=== PATIENT | female | born 1990 | race Caucasian/White ===

== ENCOUNTER 2017-02-27 09:12 | Inpatient (IN) | payer MEDICAID ==
[~2017-02-27] VITALS: Ht 157.5 cm; Wt 84.5 kg
[~2017-02-27 09:12] MED LIST: MOTRIN 600600 MG/TAB PO; PERCOCET 325 MG1 TA2 PO; PRENTAL 1 PLUS1 TAB PO; SENOKOT S 50 MG1 TAB PO
[2017-04-05] VITALS (19 sets, daily range): BP systolic 94–118; BP diastolic 44–72; PULSE 61–94; TEMP 97.6–98.1
--- NOTE | 2017-04-05 05:28 | NUR ---
HERE FOR REPEEAT C/S- SHOWN TO ROOM 210 FOR PREOP. PLAN OF CARE REVIEWED, PERMITS OBTAINED
[2017-04-05 06:37] LABS: BASO % 0.1 % (0.0-2.0); EOS % 0.4 % (0-4.0); GRAN # 5.3 (1.4-6.5); GRAN % 67.2 % (42.2-75.2); HEMOGLOBIN 12.5 g/dl (12.5-16.0); LYMPH % 25.6 % (20.0-51.0); MEAN CELL VOLUME 90 fl (80.0-100.0); MEAN CORPUSCULAR HEMOGLOBIN 31 pg (27.0-31.0); MEAN CORPUSCULAR HGB CONC 35 g/dl (33.0-37.0); MONO # 0.5 (0.1-0.6); MONO % 6.2 % (1.7-9.3); PLATELET COUNT 172 K/mm3 (130-400); RED BLOOD COUNT 3.99 M/mm3 (4.10-5.30); REDCELL DISTRIBUTION WIDTH-CV 14.9 % (11.5-14.5)
[2017-04-05] MEDS ORDERED: FERRO-TIME325 MG PO (06:40)
[2017-04-05] MEDS ORDERED: PRENATAL1 TA7 PO (06:40)
--- NOTE | 2017-04-05 06:40 | NUR ---
0640- Nurse at patient bedside. Plan of care reviewed with patient and family. Alert and oriented x3. LR infusing without difficulty in right forearm. Patient denies leaking of fluids, vaginal bleeding, or contractions. Reports good movement. Vital signs obtained and within normal limits. Assessment completed.
[2017-04-05 06:49] LABS: HEMATOCRIT 35.7 % (37.0-47.0)
--- NOTE | 2017-04-05 07:10 | NUR ---
0710- Patient ambulatory to OR suite.
--- NOTE | 2017-04-05 08:15 | NUR ---
0815- Patient to PACU via bed. Alert and oriented x3. Monitors applied. Vitals signs obtained. Fundus firm, midline, and bleeding minimal. Assessment completed. IV infusing without difficulty. Catherter to DD. Plan of care reviewed with patient who verbalizes understanding.
--- NOTE | 2017-04-05 08:30 | NUR ---
0830- Fundus boggy; firm with massage. No free flow noted. 0845- Patient alert and oriented x3. Fundus firm, midline, and bleeding minimal. Vital signs stable. Urine output adequate. LR infusing without difficulty. Patient to room 210 via bed. Plan of care reviewed with patient and family who verbalize understanding. Patient resting comfortably with call light within reach.
--- NOTE | 2017-04-05 13:50 | NUR ---
1350- Fundus firm, midline, and bleeding minimal. Patient assisted to sit on edge of bed. Denies feelings of lightheadedness or dizziness. Ambulatory to bathroom. Reyes catheter discontinued. Leeanne care provided, pads changed, and clean gown on. Patient back to bed independently. Quiet time reviewed with patient and family. Patient denies further questions or needs. Call light within reach.
[2017-04-06 04:30] VITALS: BP 113/67; PULSE 80; TEMP 97.8
[2017-04-06] MEDS ORDERED: IBU800 M1 PO (07:31)
[2017-04-06] MEDS ORDERED: PERCOCET 325 MG1 TA2 PO (07:32)
[2017-04-06 08:30] VITALS: BP 112/74; PULSE 93; TEMP 98.3
--- NOTE | 2017-04-06 09:38 | NUR ---
Initial visit; Mom thanked [employer] Machine Set Up Operator for offering congratulations and God's blessings regarding the of her son. Center Machine Set Up Operator thanked patient for choosing [facility].
== END 2017-04-06 11:50 | disposition home or self-care (01) | DRG 765 ==
LOC: OB 04-05 05:19 → EDSTATUS 04-12 07:31 → LDRO 04-12 09:12
PROVIDERS: ADMIT Obstetrics & Gynecology
PROC: 10D00Z1 Extraction of Products of Conception, Low, Open Approach (ICD-10-PCS; principal; 2017-04-05)
DX: O34.211 Maternal care for low transverse scar from previous cesarean delivery (principal); O36.0130 Maternal care for anti-D [Rh] antibodies, third trimester, not applicable or unspecified; N85.8 Other specified noninflammatory disorders of uterus; Z3A.39 39 weeks gestation of pregnancy; Z37.0 Single live birth
CPT/HCPCS: J0690; J1885; J2270; J2370; J2405; J2590; J2791; J7120

== ENCOUNTER 2018-07-26 05:33 | Inpatient (IN) | payer MEDICAID ==
[~2018-07-26] VITALS: Ht 157.5 cm; Wt 81.4 kg
[2018-07-26] VITALS (19 sets, daily range): BP systolic 82–121; BP diastolic 41–76; PULSE 68–103; TEMP 97.8–98.2
[~2018-07-26 05:33] MED LIST changes: +FERRO-TIME325 MG PO; +IBU800 M1 PO; +PRENATAL1 TA7 PO
[2018-07-26 06:14] LABS: BASO % 0.1 % (0.0-2.0); EOS % 0.5 % (0-4.0); GRAN # 5.4 (1.4-6.5); GRAN % 70.8 % (42.2-75.2); HEMATOCRIT 37.7 % (37.0-47.0); HEMOGLOBIN 13.4 g/dl (12.5-16.0); LYMPH # 1.7 (1.2-3.4); LYMPH % 21.9 % (20.0-51.0); MEAN CELL VOLUME 93 fl (80.0-100.0); MEAN CORPUSCULAR HEMOGLOBIN 33 pg (27.0-31.0); MEAN CORPUSCULAR HGB CONC 36 g/dl (33.0-37.0); MEAN PLATELET VOLUME 9.4 fl (7.4-10.4); MONO # 0.5 (0.1-0.6); MONO % 6.2 % (1.7-9.3); PLATELET COUNT 161 K/mm3 (130-400); RED BLOOD COUNT 4.04 M/mm3 (4.10-5.30); REDCELL DISTRIBUTION WIDTH-CV 14.2 % (11.5-14.5)
[2018-07-27 03:00] VITALS: BP 114/57; PULSE 84; TEMP 98.5
[2018-07-27 08:10] VITALS: BP 110/68; PULSE 82; TEMP 99.1
[2018-07-27] MEDS ORDERED: PERCOCET 325 MG1 TA2 PO (11:22)
[2018-07-27] MEDS ORDERED: MOTRIN 800800 MG/TAB PO (11:22)
== END 2018-07-27 14:20 | disposition home or self-care (01) | DRG 785 ==
LOC: OB 05:33 → LDR 14:05 → OB 07-27 14:20
PROVIDERS: Obstetrics & Gynecology
PROC: 10D00Z1 Extraction of Products of Conception, Low, Open Approach (ICD-10-PCS; principal; 2018-07-26)
PROC: 0UT70ZZ Resection of Bilateral Fallopian Tubes, Open Approach (ICD-10-PCS; 2018-07-26)
DX: O34.211 Maternal care for low transverse scar from previous cesarean delivery (principal); Z3A.39 39 weeks gestation of pregnancy; Z37.0 Single live birth; Z40.03 Encounter for prophylactic removal of fallopian tube(s); O99.824 Streptococcus B carrier state complicating childbirth; O26.893 Other specified pregnancy related conditions, third trimester; Z67.11 Type A blood, Rh negative
CPT/HCPCS: J0690; J1885; J2270; J2370; J2405; J2590; J2791; J7120